=== PATIENT | male | born 1960 | race Caucasian/White ===

== ENCOUNTER 2018-10-15 13:33 | Emergency (ER) | payer OTHER ==
[~2018-10-15] VITALS: Ht 167.6 cm; Wt 72.6 kg
[~2018-10-15 13:33] MED LIST: KEFLEX500 MG PO; MOTRIN800 MG PO
== END 2018-10-15 13:58 | disposition home or self-care (01) ==
LOC: ED 13:33
DX: S01.01XD Laceration without foreign body of scalp, subsequent encounter (principal); R03.0 Elevated blood-pressure reading, without diagnosis of hypertension; Z48.02 Encounter for removal of sutures; W22.8XXD Striking against or struck by other objects, subsequent encounter